=== PATIENT | female | born 1965 | race Caucasian/White ===

== ENCOUNTER → 2022-07-26 | Outpatient (CLI) | payer OTHER ==
[~2022-07-26] MED LIST: Zofran4 MG PO
[2022-07-26 09:28] LABS: BASOPHILS ABSOLUTE AUTO 0.05 K/mm3 (0.00-0.23); BASOPHILS PERCENT AUTO 0 % (0-2); EOSINOPHILS ABSOLUTE AUTO 0.06 K/mm3 (0.00-0.68); EOSINOPHILS PERCENT AUTO 0 % (0-6); Hemoglobin 13.8 g/dL (11.5-16.0); IMMATURE GRAN ABSOLUTE AUTO 0.06 K/mm3 (0.00-0.10); IMMATURE GRAN PERCENT AUTO 0 % (0-1); LYMPHOCYTES ABSOLUTE AUTO 2.58 K/mm3 (0.84-5.20); LYMPHOCYTES PERCENT AUTO 18 % (21-46); MONOCYTES ABSOLUTE AUTO 0.94 K/mm3 (0.16-1.47); MONOCYTES PERCENT AUTO 6 % (4-13); Mean Corpuscular HGB 31.2 pg (26.0-34.0); Mean Corpuscular HGB Conc 34.5 g/dL (31.5-36.5); Mean Corpuscular Volume 90 fL (80-100); Mean Platelet Volume 9.2 fL (9.1-12.4); NEUTROPHILS ABSOLUTE AUTO 11.09 K/mm3 (1.96-9.15); NEUTROPHILS PERCENT AUTO 75 % (41-73); Platelet Count 308 K/mm3 (150-400); RDW Coefficient Variation 12.2 % (11.7-14.2); RDW Standard Deviation 40.1 fL (35.1-46.3); Red Blood Cell Count 4.43 M/mm3 (3.80-5.20); White Blood Cell Count 14.78 K/mm3 (4.00-11.30)
[2022-07-26 09:37] LABS: Bun/Creatinine Ratio 10.6 (12.0-20.0); Calcium, Blood 8.8 mg/dL (8.5-10.1); Creatinine, Blood 0.85 mg/dL (0.40-1.00); Potassium, Blood 3.5 mmol/L (3.5-5.5)
== END | disposition home or self-care (01) ==
LOC: LAB SHORT 09:23
PROVIDERS: Physician Assistant Medical
DX: K11.21 Acute sialoadenitis (principal)
CPT/HCPCS: 80048; 85025

== ENCOUNTER → 2022-07-27 | Outpatient (CLI) | payer OTHER ==
[2022-07-27 08:29] LABS: BASOPHILS ABSOLUTE AUTO 0.03 K/mm3 (0.00-0.23); BASOPHILS PERCENT AUTO 0 % (0-2); EOSINOPHILS ABSOLUTE AUTO 0.02 K/mm3 (0.00-0.68); EOSINOPHILS PERCENT AUTO 0 % (0-6); Hemoglobin 12.1 g/dL (11.5-16.0); IMMATURE GRAN ABSOLUTE AUTO 0.07 K/mm3 (0.00-0.10); IMMATURE GRAN PERCENT AUTO 0 % (0-1); LYMPHOCYTES PERCENT AUTO 17 % (21-46); MONOCYTES ABSOLUTE AUTO 2.08 K/mm3 (0.16-1.47); MONOCYTES PERCENT AUTO 11 % (4-13); Mean Corpuscular HGB 31.1 pg (26.0-34.0); Mean Corpuscular HGB Conc 34.6 g/dL (31.5-36.5); Mean Corpuscular Volume 90 fL (80-100); Mean Platelet Volume 9.2 fL (9.1-12.4); NEUTROPHILS ABSOLUTE AUTO 13.61 K/mm3 (1.96-9.15); NEUTROPHILS PERCENT AUTO 72 % (41-73); Platelet Count 298 K/mm3 (150-400); RDW Coefficient Variation 12.2 % (11.7-14.2); RDW Standard Deviation 39.9 fL (35.1-46.3); Red Blood Cell Count 3.89 M/mm3 (3.80-5.20); White Blood Cell Count 19.01 K/mm3 (4.00-11.30)
== END | disposition home or self-care (01) ==
LOC: LAB SHORT 08:23
PROVIDERS: Physician Assistant
DX: K11.21 Acute sialoadenitis (principal)
CPT/HCPCS: 85025

== ENCOUNTER 2022-08-03 17:09 | Inpatient (IN) | payer SELFPAY ==
[~2022-08-03] VITALS: Ht 160 cm; Wt 106.1 kg
[~2022-08-03 17:09] MED LIST changes: -AMOCLA875 PO; -ATOMOXETINE HCL25 MG PO; -Celexa20 MG PO; -METPRE4DP PO; -Norco 5-325 Ta1 EACH PO; -SEROQUEL200 MG PO
[2022-08-03] MEDS ORDERED: ATOMOXETINE HCL25 MG PO (18:07)
[2022-08-03] MEDS ORDERED: SEROQUEL200 MG PO (18:07)
[2022-08-03] MEDS ORDERED: Celexa20 MG PO (18:08)
[2022-08-04 05:21] LABS: BASOPHILS ABSOLUTE AUTO 0.03 K/mm3 (0.00-0.23); BASOPHILS PERCENT AUTO 0 % (0-2); EOSINOPHILS ABSOLUTE AUTO 0.27 K/mm3 (0.00-0.68); EOSINOPHILS PERCENT AUTO 3 % (0-6); Hematocrit 37.7 % (33.0-51.0); Hemoglobin 12.9 g/dL (11.5-16.0); IMMATURE GRAN ABSOLUTE AUTO 0.03 K/mm3 (0.00-0.10); IMMATURE GRAN PERCENT AUTO 0 % (0-1); LYMPHOCYTES ABSOLUTE AUTO 3.33 K/mm3 (0.84-5.20); LYMPHOCYTES PERCENT AUTO 38 % (21-46); MONOCYTES ABSOLUTE AUTO 0.82 K/mm3 (0.16-1.47); MONOCYTES PERCENT AUTO 9 % (4-13); Mean Corpuscular HGB 30.9 pg (26.0-34.0); Mean Corpuscular HGB Conc 34.2 g/dL (31.5-36.5); Mean Corpuscular Volume 90 fL (80-100); Mean Platelet Volume 8.5 fL (9.1-12.4); NEUTROPHILS ABSOLUTE AUTO 4.25 K/mm3 (1.96-9.15); NEUTROPHILS PERCENT AUTO 49 % (41-73); Platelet Count 339 K/mm3 (150-400); RDW Coefficient Variation 11.9 % (11.7-14.2); RDW Standard Deviation 39.4 fL (35.1-46.3); Red Blood Cell Count 4.17 M/mm3 (3.80-5.20); White Blood Cell Count 8.73 K/mm3 (4.00-11.30)
[2022-08-04 05:38] LABS: Bun/Creatinine Ratio 13.7 (12.0-20.0); Calcium, Blood 8.3 mg/dL (8.5-10.1); Creatinine, Blood 1.02 mg/dL (0.40-1.00); Potassium, Blood 3.8 mmol/L (3.5-5.5)
--- NOTE | 2022-08-04 06:51 | NUR ---
SUMMARY ADMIT FOR ABSVESS. DR WREN CALLED AND WILL BE IN TO ATTEMPT DRAINAGE INROOM THIS AM.PT NPO.VOIDING.PAIN WELL CONTROLLED IV INFUSING .
--- NOTE | 2022-08-04 15:23 | NUR ---
SHIFT SUMMARY: DR. ADEN (ENT) CAME TO THE PATIENTS ROOM AT 1330 TODAY. SHE INJECTED 10ML OF LIDOCAINE INTO THE PATIENTS RIGHT CHEEK OF HER MOUTH, AND THEN ASPIRATED THE INTERNAL CHEEK ABSCESS. DR. ADEN WAS ABLE TO DRAW OUT 5NL OF YELLOW/RED PUSS FROM THE RIGHT CHEEK. SAMPLES WERE SENT TO [facility] FOR FURTHER EVALUATION. DR. ADEN PLACED GAUZE WITH TAPE ON THE RIGHT CHEEK WHERE SHE RASTA BACK THE PUSS THAT IS STILL C/D/I. PATIENT IS TOLERATING PO INTAKE OF MECHANICAL SOFT FOODS. SHE IS VOIDING AND PASSING GAS. PAIN IS MANAGED WITH PO TYLENOL AND NORCO AT THIS TIME. PATIENT IS A&OX4. INDEP. TO THE BATHROOM. CALLS APPROPRIATELY. PATIENT IS SITTING UP IN BED WITH CALL LIGHT IN REACH. THE PLAN IS TO CONTINUE IV ABX AND PAIN MANAGEMENT. DR. ADEN SAID SHE WOULD COME BACK TOMORROW TO RE-EVALUATE HER RIGHT CHEEK, AND MIGHT POSSIBLY DISCHARGE HOME TOMORROW IF APPROPRIATE.
--- NOTE | 2022-08-05 05:50 | NUR ---
Patient slept well overnight, [place] given x1. Voiding and independent in room. Right cheek dressing clean, dry, and intact. No questions or concerns at this time.
--- NOTE | 2022-08-05 16:54 | NUR ---
SHIFT SUMMARY NO ACUTE CHANGES THIS SHEFT. ENT MD CLEARED PATIENT TO DISCHARGE, HOWEVER PATIENT FELT MORE COMFORTABLE GETTING ANOTHER DAY OF IV ABX TO ENSURE ABCESS/INFECTION WILL HEAL. MD AGREEABLE. IND IN ROOM T/O SHIFT. EATING, DRINKING, & VOIDING W/O DIFFICULTY. DENIED PAIN T/O SHIFT. CALL LIGHT INR EACH, WILL REPORT TO ONCOMING RN AT 1900.
--- NOTE | 2022-08-06 06:22 | NUR ---
Patient stated pain has improved and was able to eat comfortably. IV ABX given as scheduled. Incision clean dry intact, open to air. Swelling has decresed in cheek. No questions or concerns at this time.
[2022-08-06] MEDS ORDERED: AMOCLA875 PO (10:19)
[2022-08-06] MEDS ORDERED: METPRE4DP PO (10:19)
[2022-08-06] MEDS ORDERED: Norco 5-325 Ta1 EACH PO (10:20)
--- NOTE | 2022-08-06 10:50 | NUR ---
DISCHARGE VSS ON ROOM AIR. PATIENT INDEPENDENT IN ROOM. EATING, DRINKING, & VOIDING WELL. DENIES PAIN AT THIS TIME. RIGHT CHEEK APPEARS SLIGHTLY SWOLLEN, NO REDNESS OR DRAINAGE NOTED. DISCUSSED DISCHARGE INSTRUCTIONS. PATIENT DECLINED W/C, AMBULATED OUT W/ FAMILY MEMBER.
== END 2022-08-06 10:50 | disposition home or self-care (01) | DRG 138 ==
LOC: ER 17:09 → SURS 17:10
PROVIDERS: Family Medicine; ADMIT Internal Medicine
PROC: 0W930ZZ Drainage of Oral Cavity and Throat, Open Approach (ICD-10-PCS; principal; 2022-08-04)
DX: K12.2 Cellulitis and abscess of mouth (principal); M27.2 Inflammatory conditions of jaws; F32.9 Major depressive disorder, single episode, unspecified; F41.9 Anxiety disorder, unspecified; F90.9 Attention-deficit hyperactivity disorder, unspecified type; Z79.899 Other long term (current) drug therapy; Z98.890 Other specified postprocedural states
CPT/HCPCS: 36415; 80048; 85025; 87070; 87075; 87205; 96376; 99284; A9270; G0378; J0295; J1100; J2543; J7030

== ENCOUNTER → 2022-08-03 | Outpatient (CLI) | payer SELFPAY ==
[~2022-08-03] MED LIST changes: +AMOCLA875 PO; +ATOMOXETINE HCL25 MG PO; +Celexa20 MG PO; +METPRE4DP PO; +Norco 5-325 Ta1 EACH PO; +SEROQUEL200 MG PO
[2022-08-03 09:30] LABS: BASOPHILS ABSOLUTE AUTO 0.04 K/mm3 (0.00-0.23); BASOPHILS PERCENT AUTO 0 % (0-2); EOSINOPHILS ABSOLUTE AUTO 0.33 K/mm3 (0.00-0.68); EOSINOPHILS PERCENT AUTO 3 % (0-6); Hematocrit 39.5 % (33.0-51.0); Hemoglobin 13.6 g/dL (11.5-16.0); IMMATURE GRAN ABSOLUTE AUTO 0.05 K/mm3 (0.00-0.10); IMMATURE GRAN PERCENT AUTO 1 % (0-1); LYMPHOCYTES PERCENT AUTO 32 % (21-46); MONOCYTES ABSOLUTE AUTO 0.63 K/mm3 (0.16-1.47); MONOCYTES PERCENT AUTO 6 % (4-13); Mean Corpuscular HGB 31.4 pg (26.0-34.0); Mean Corpuscular HGB Conc 34.4 g/dL (31.5-36.5); Mean Corpuscular Volume 91 fL (80-100); Mean Platelet Volume 8.5 fL (9.1-12.4); NEUTROPHILS ABSOLUTE AUTO 6.26 K/mm3 (1.96-9.15); NEUTROPHILS PERCENT AUTO 58 % (41-73); Platelet Count 347 K/mm3 (150-400); RDW Coefficient Variation 11.9 % (11.7-14.2); RDW Standard Deviation 39.8 fL (35.1-46.3); Red Blood Cell Count 4.33 M/mm3 (3.80-5.20); White Blood Cell Count 10.71 K/mm3 (4.00-11.30)
[2022-08-03 09:47] LABS: Albumin, Blood 3.4 g/dL (3.4-5.0); Albumin/Globulin Ratio 0.7 (0.8-1.8); Bilirubin, Total 0.1 mg/dL (0.1-1.0); Bun/Creatinine Ratio 17.2 (12.0-20.0); Calcium, Blood 9.2 mg/dL (8.5-10.1); Creatinine, Blood 0.99 mg/dL (0.40-1.00); Globulin, Blood 4.7 g/dL (2.2-4.0); Potassium, Blood 4.2 mmol/L (3.5-5.5); Total Protein, Blood 8.1 g/dL (6.4-8.2)
== END | disposition home or self-care (01) ==
LOC: LAB SHORT 09:26
PROVIDERS: Emergency Medicine
DX: R22.0 Localized swelling, mass and lump, head (principal)
CPT/HCPCS: 80053; 85025

== ENCOUNTER 2023-03-18 10:32 | Inpatient (IN) | payer SELFPAY ==
[~2023-03-18] VITALS: Ht 160 cm; Wt 110.0 kg
[~2023-03-18 10:32] MED LIST changes: +AMOCLA875 PO; +ATOMOXETINE HCL25 MG PO; +Celexa20 MG PO; +METPRE4DP PO; +Norco 5-325 Ta1 EACH PO; +SEROQUEL200 MG PO
[2023-03-18 11:57] LABS: BASOPHILS ABSOLUTE AUTO 0.06 K/mm3 (0.00-0.23); BASOPHILS PERCENT AUTO 0 % (0-2); EOSINOPHILS ABSOLUTE AUTO 0.25 K/mm3 (0.00-0.68); EOSINOPHILS PERCENT AUTO 2 % (0-6); Hematocrit 37.8 % (33.0-51.0); IMMATURE GRAN ABSOLUTE AUTO 0.03 K/mm3 (0.00-0.10); IMMATURE GRAN PERCENT AUTO 0 % (0-1); LYMPHOCYTES ABSOLUTE AUTO 3.21 K/mm3 (0.84-5.20); LYMPHOCYTES PERCENT AUTO 24 % (21-46); MONOCYTES PERCENT AUTO 7 % (4-13); Mean Corpuscular HGB 31.5 pg (26.0-34.0); Mean Corpuscular HGB Conc 34.4 g/dL (31.5-36.5); Mean Corpuscular Volume 92 fL (80-100); Mean Platelet Volume 8.7 fL (9.1-12.4); NEUTROPHILS ABSOLUTE AUTO 8.98 K/mm3 (1.96-9.15); NEUTROPHILS PERCENT AUTO 67 % (41-73); Platelet Count 342 K/mm3 (150-400); RDW Coefficient Variation 12.4 % (11.7-14.2); RDW Standard Deviation 41.1 fL (35.1-46.3); Red Blood Cell Count 4.13 M/mm3 (3.80-5.20); White Blood Cell Count 13.43 K/mm3 (4.00-11.30)
[2023-03-18 12:51] LABS: Albumin, Blood 3.7 g/dL (3.4-5.0); Albumin/Globulin Ratio 0.8 (0.8-1.8); Bilirubin, Total 0.2 mg/dL (0.1-1.0); Bun/Creatinine Ratio 12.4 (12.0-20.0); Calcium, Blood 8.8 mg/dL (8.5-10.1); Creatinine, Blood 0.97 mg/dL (0.40-1.00); Globulin, Blood 4.7 g/dL (2.2-4.0); Potassium, Blood 3.8 mmol/L (3.5-5.5); Total Protein, Blood 8.4 g/dL (6.4-8.2)
[2023-03-18 18:07] VITALS: BP 123/72
--- NOTE | 2023-03-19 03:55 | NUR ---
SHIFT SUMMARY NOC PT A/O X 4. PLEASANT AND COOPERATIVE WITH CARE. RECEIVING UNASYN IV FOR R SIDE DENTAL ABCESS. PT MAY DISCHARGE TODAY TO TRANSFER DOWN TO [place] FOR DENTAL CONSULT, BUT PT VEHICLE IS NOT RELIABLE, SO OTHER TRAVEL OPTIONS ARE BEING REVIEWED. ACCORDING TO PT SWELLING ON R SIDE HAS SIGNIFICANTLY DECREASED SINCE ADMIT TO FLOOR YESTERDAY. NO ACUTE CHANGES TO REPORT. PT IS CURRENTLY RESTING WITH BED IN LOWEST POSITION, AND CALL LIGHT WITHIN REACH.
[2023-03-19 04:50] LABS: BASOPHILS ABSOLUTE AUTO 0.05 K/mm3 (0.00-0.23); BASOPHILS PERCENT AUTO 1 % (0-2); EOSINOPHILS ABSOLUTE AUTO 0.37 K/mm3 (0.00-0.68); EOSINOPHILS PERCENT AUTO 4 % (0-6); Hematocrit 35.9 % (33.0-51.0); Hemoglobin 12.3 g/dL (11.5-16.0); IMMATURE GRAN ABSOLUTE AUTO 0.02 K/mm3 (0.00-0.10); IMMATURE GRAN PERCENT AUTO 0 % (0-1); LYMPHOCYTES ABSOLUTE AUTO 3.03 K/mm3 (0.84-5.20); LYMPHOCYTES PERCENT AUTO 29 % (21-46); MONOCYTES ABSOLUTE AUTO 0.92 K/mm3 (0.16-1.47); MONOCYTES PERCENT AUTO 9 % (4-13); Mean Corpuscular HGB 31.3 pg (26.0-34.0); Mean Corpuscular HGB Conc 34.3 g/dL (31.5-36.5); Mean Corpuscular Volume 91 fL (80-100); Mean Platelet Volume 9.1 fL (9.1-12.4); NEUTROPHILS ABSOLUTE AUTO 6.18 K/mm3 (1.96-9.15); NEUTROPHILS PERCENT AUTO 58 % (41-73); Platelet Count 320 K/mm3 (150-400); RDW Coefficient Variation 12.5 % (11.7-14.2); RDW Standard Deviation 41.4 fL (35.1-46.3); Red Blood Cell Count 3.93 M/mm3 (3.80-5.20); White Blood Cell Count 10.57 K/mm3 (4.00-11.30)
[2023-03-19 05:47] VITALS: BP 111/66
[2023-03-19 07:41] VITALS: BP 102/59
--- NOTE | 2023-03-19 15:32 | NUR ---
3 BLUE AND WHITE PILLS IN PT LOCK BOX IN SMALL ZIPLOC BAG. PER PT PILLS ARE FOR ADHD. PHARMACY UNABLE TO VERIFY DUE TO NO BOTTLE WITH EXPIRATION DATE. PT STATES HER FATHER WILL BRING BOTTLE IN PRIOR TO AM MEDICATIONS.
[2023-03-19 15:43] VITALS: BP 111/56
--- NOTE | 2023-03-19 18:41 | NUR ---
SHIFT SUMMARY: PT A&O X4. PT PLEASANT AND COOPERATIVE WITH CARE. PT STATES HER PAIN/SWELLING HAS IMPROVED SINCE YESTERDAY. PT C/O 9/10 PAIN ONCE THIS SHIFT. PAIN MEDS GIVEN PER EMAR. DR. ACEVEDO ARRIVED THIS EVENING TO CONSULT WITH PT. 10MG IV DECADRON ADDED VERBAL ORDER. PT TOLERATING IV ABX WELL. ADHD MEDICATIONS IN DRAWER. FATHER OF PT TO BRING IN MEDICATION BOTTLE EITHER TONIGHT OR TOMORROW TO BE GIVEN TO PHARMACY. INDEPENDENT IN ROOM. IV IN LAC PAINFUL. EJ CHIANG PLACED NEW IV IN L.HAND CURRENTLY INFUSING AMPICILLIN. PT SWITCHED TO [facility] SOFT DIET DUE TO PAIN WHEN EATING. PT DID NOT TRANSFER TO [place] IV ABX APPEAR TO BE HELPING W/SWELLING. CALL LIGHT IN REACH. BED IN LOWEST POSITION. WILL CONTINUE TO MONITOR.
[2023-03-19 19:20] VITALS: BP 115/63
--- NOTE | 2023-03-20 04:26 | NUR ---
SUMMARY- PT A/O X4, INDEPENDANT IN ROOM. TOLERATING FOOD AND FLUID. DENIES ANY PAIN, DECLINED NORCO WHEN OFFERED. CONT WITH SWELLING TO R FACIAL, PT STATES SOME IMPROVEMENT. SLEPT MOST OF SHIFT FROM 2300 ON.
[2023-03-20 04:29] VITALS: BP 98/61
[2023-03-20 05:44] LABS: BASOPHILS ABSOLUTE AUTO 0.01 K/mm3 (0.00-0.23); BASOPHILS PERCENT AUTO 0 % (0-2); EOSINOPHILS PERCENT AUTO 0 % (0-6); Hematocrit 39.8 % (33.0-51.0); Hemoglobin 13.4 g/dL (11.5-16.0); IMMATURE GRAN ABSOLUTE AUTO 0.05 K/mm3 (0.00-0.10); IMMATURE GRAN PERCENT AUTO 0 % (0-1); LYMPHOCYTES ABSOLUTE AUTO 1.68 K/mm3 (0.84-5.20); LYMPHOCYTES PERCENT AUTO 15 % (21-46); MONOCYTES ABSOLUTE AUTO 0.09 K/mm3 (0.16-1.47); MONOCYTES PERCENT AUTO 1 % (4-13); Mean Corpuscular HGB 30.9 pg (26.0-34.0); Mean Corpuscular HGB Conc 33.7 g/dL (31.5-36.5); Mean Corpuscular Volume 92 fL (80-100); NEUTROPHILS ABSOLUTE AUTO 9.56 K/mm3 (1.96-9.15); NEUTROPHILS PERCENT AUTO 84 % (41-73); Platelet Count 354 K/mm3 (150-400); RDW Coefficient Variation 12.1 % (11.7-14.2); RDW Standard Deviation 40.8 fL (35.1-46.3); Red Blood Cell Count 4.34 M/mm3 (3.80-5.20); White Blood Cell Count 11.39 K/mm3 (4.00-11.30)
[2023-03-20 06:08] LABS: Bun/Creatinine Ratio 17.4 (12.0-20.0); Calcium, Blood 8.8 mg/dL (8.5-10.1); Creatinine, Blood 0.86 mg/dL (0.40-1.00)
[2023-03-20 08:14] VITALS: BP 113/71
[2023-03-20 16:08] VITALS: BP 117/50
--- NOTE | 2023-03-20 18:02 | NUR ---
SHIFT SUMMARY: PT A&O X4. PT PLEASANT AND COOPERATIVE WITH CARE. PT STATES SHE IS FEELING MUCH BETTER TODAY REGARDING SWELLING AND PAIN. WILL CONTINUE WITH LAST 2 DOSES OF IV STERIODS AND LIKELY GO HOME TOMORROW W/OUTPT FOLLOW-UP. DR. ACEVEDO ARRIVED TO TALKED TO PT THIS AFTERNOON. PILLS IN DRAWER LABELED BY PHARMACY THIS AM. CALL LIGHT IN REACH. BED IN LOWEST POSITION. WILL CONTINUE TO MONITOR.
[2023-03-20 19:23] VITALS: BP 123/74
--- NOTE | 2023-03-21 05:03 | NUR ---
END OF SHIFT SUMMARY PT A&O x4, VSS, AFEBRILE. PT CALM AND COOPERATIVE WITH CARE PROVIDED. PT DENIED PAIN/DISCOMFORT. UNEVENTFUL NIGHT, PT SLEPT FOR MOST OF THE SHIFT. IV ANTIBIOTICS ADMINISTERED. PT COMPLIANT WITH MEDICATION REGIMEN, EXCEPT FOR THE BOWEL CARE MEDS. PT ON RA, RESP EVEN AND UNLABORED. PT ANTICIPATING GOING HOME TODAY. CALL LIGHT WITHIN REACH, WCTM.
[2023-03-21 05:05] VITALS: BP 110/70
[2023-03-21 06:17] LABS: BASOPHILS ABSOLUTE AUTO 0.03 K/mm3 (0.00-0.23); BASOPHILS PERCENT AUTO 0 % (0-2); EOSINOPHILS PERCENT AUTO 0 % (0-6); Hematocrit 38.9 % (33.0-51.0); Hemoglobin 13.3 g/dL (11.5-16.0); IMMATURE GRAN ABSOLUTE AUTO 0.14 K/mm3 (0.00-0.10); IMMATURE GRAN PERCENT AUTO 1 % (0-1); LYMPHOCYTES ABSOLUTE AUTO 2.29 K/mm3 (0.84-5.20); LYMPHOCYTES PERCENT AUTO 11 % (21-46); MONOCYTES ABSOLUTE AUTO 0.34 K/mm3 (0.16-1.47); MONOCYTES PERCENT AUTO 2 % (4-13); Mean Corpuscular HGB 31.1 pg (26.0-34.0); Mean Corpuscular HGB Conc 34.2 g/dL (31.5-36.5); Mean Corpuscular Volume 91 fL (80-100); Mean Platelet Volume 9.1 fL (9.1-12.4); NEUTROPHILS ABSOLUTE AUTO 17.78 K/mm3 (1.96-9.15); NEUTROPHILS PERCENT AUTO 86 % (41-73); Platelet Count 385 K/mm3 (150-400); RDW Coefficient Variation 12.5 % (11.7-14.2); Red Blood Cell Count 4.27 M/mm3 (3.80-5.20); White Blood Cell Count 20.58 K/mm3 (4.00-11.30)
[2023-03-21 06:56] LABS: Albumin, Blood 3.1 g/dL (3.4-5.0); Albumin/Globulin Ratio 0.6 (0.8-1.8); Bilirubin, Total 0.1 mg/dL (0.1-1.0); Bun/Creatinine Ratio 20.1 (12.0-20.0); Calcium, Blood 9.1 mg/dL (8.5-10.1); Creatinine, Blood 0.75 mg/dL (0.40-1.00); Globulin, Blood 4.9 g/dL (2.2-4.0); Potassium, Blood 3.8 mmol/L (3.5-5.5)
[2023-03-21 07:09] VITALS: BP 111/69
[2023-03-21] MEDS ORDERED: AMOCLA875 PO (12:33)
[2023-03-21] MEDS ORDERED: PRED20 PO (12:34)
--- NOTE | 2023-03-21 13:52 | NUR ---
LATE ENTRY/DC HOME 1245: WRITTEN & VERBAL DC IMSTRUCTIONS GIVEN TO PT, PT VERBALIZED GOOD UNDERSTANDING. ALL CONCERNS AND QUESTIONS ADDRESSED. NEW MED SCRIPTS FAXED TO [facility] PER PT REQUEST. PIV DC'D WITH CATH TIP INTACT, NO REDNESS OR SWELLING NOTED. PT AMBULATED SELF OUT TO DAD'S WAITING PV WITH ALL PERSONAL BELONGINGS.
== END 2023-03-21 12:54 | disposition home or self-care (01) | DRG 158 ==
LOC: ER 10:32 → MEDS 10:33 → ENPENDDIS 03-21 11:37 → MEDS 03-21 12:54
PROVIDERS: Hospitalist; Student in an Organized Health Care Education/Training Program; ADMIT Hospitalist
DX: K04.7 Periapical abscess without sinus (principal); F33.0 Major depressive disorder, recurrent, mild; L03.211 Cellulitis of face; Z68.41 Body mass index [BMI] 40.0-44.9, adult; D72.829 Elevated white blood cell count, unspecified; E66.9 Obesity, unspecified; F41.9 Anxiety disorder, unspecified; F90.9 Attention-deficit hyperactivity disorder, unspecified type; Z79.899 Other long term (current) drug therapy; Z98.891 History of uterine scar from previous surgery
CPT/HCPCS: 36415; 70487; 80048; 80053; 85025; 86140; 96365-59; 96366; 96375-59; 96376; 99285-25; A9270; G0378; J0295; J1100; J1885; J7050; Q9967

== ENCOUNTER 2023-04-15 09:34 | Inpatient (IN) | payer SELFPAY ==
[~2023-04-15] VITALS: Ht 157.5 cm; Wt 113.8 kg
[~2023-04-15 09:34] MED LIST changes: +PRED20 PO
[2023-04-15 10:25] LABS: BASOPHILS ABSOLUTE AUTO 0.04 K/mm3 (0.00-0.23); BASOPHILS PERCENT AUTO 1 % (0-2); EOSINOPHILS ABSOLUTE AUTO 0.34 K/mm3 (0.00-0.68); EOSINOPHILS PERCENT AUTO 5 % (0-6); Hematocrit 36.9 % (33.0-51.0); Hemoglobin 12.4 g/dL (11.5-16.0); IMMATURE GRAN ABSOLUTE AUTO 0.01 K/mm3 (0.00-0.10); IMMATURE GRAN PERCENT AUTO 0 % (0-1); LYMPHOCYTES PERCENT AUTO 38 % (21-46); MONOCYTES ABSOLUTE AUTO 0.61 K/mm3 (0.16-1.47); MONOCYTES PERCENT AUTO 9 % (4-13); Mean Corpuscular HGB 31.5 pg (26.0-34.0); Mean Corpuscular HGB Conc 33.6 g/dL (31.5-36.5); Mean Corpuscular Volume 94 fL (80-100); Mean Platelet Volume 9.3 fL (9.1-12.4); NEUTROPHILS PERCENT AUTO 48 % (41-73); Platelet Count 268 K/mm3 (150-400); RDW Standard Deviation 44.7 fL (35.1-46.3); Red Blood Cell Count 3.94 M/mm3 (3.80-5.20)
[2023-04-15 10:41] LABS: Albumin, Blood 3.4 g/dL (3.4-5.0); Albumin/Globulin Ratio 0.9 (0.8-1.8); Bilirubin, Total 0.3 mg/dL (0.1-1.0); Bun/Creatinine Ratio 16.8 (12.0-20.0); Calcium, Blood 8.2 mg/dL (8.5-10.1); Creatinine, Blood 0.95 mg/dL (0.40-1.00); Globulin, Blood 3.9 g/dL (2.2-4.0); Potassium, Blood 3.7 mmol/L (3.5-5.5); Total Protein, Blood 7.3 g/dL (6.4-8.2)
[2023-04-15 14:59] VITALS: BP 129/78
--- NOTE | 2023-04-15 16:38 | NUR ---
ADMISSION MS SLATER WAS ADMITTED TO MEDICAL UNIT FROM [facility] AT 1455HRS. SHE IS UP INDEPENDENTLY IN THE ROOM WITH A STEADY GAIT. SHE IS HERE FOR RIGHT FACIAL ABSCESS AND HAS RIGHT FACIAL REDNESS AND SWELLING, PHOTOGRAPH IN CHART. SHE SAID PAIN HAS DECREASED SINCE IV ABX WERE GIVEN IN THE [facility]. SHE LIVES IN AN APARTMENT, HER FATHER LIVES WITH HER. SHE SAID THAT AFTER HER LAST DISCHARGE SHE SOMETIMES WOULD FORGET TO TAKE HER MORNING MEDICATIONS AND WOULD MISS SOME DOSES OF HER ANTIBIOTICS. OTHER THAN THE FACIAL ABSCESS SHE HAS DENIED ANY OTHER PROBLEMS OR CONCERNS. SHE IS NPO ON IVF. BED LOW, CALL LIGHT IN REACH.
[2023-04-15 19:01] VITALS: BP 123/64
--- NOTE | 2023-04-16 02:25 | NUR ---
SHIFT SUMMERY. PT RESTING IN BED, PT WIDE AWAKE MOST OF THE NIGHT. PT STATED SHE WORKS THE [employer] SO IS USUALY UP ALLL NIGHT, PT TAKING ON PHONE TO FRIEND. CALL LIGHT IN REACH .
[2023-04-16 03:06] VITALS: BP 105/62
[2023-04-16 04:50] LABS: BASOPHILS ABSOLUTE AUTO 0.02 K/mm3 (0.00-0.23); BASOPHILS PERCENT AUTO 0 % (0-2); EOSINOPHILS PERCENT AUTO 0 % (0-6); Hematocrit 41.7 % (33.0-51.0); Hemoglobin 14.1 g/dL (11.5-16.0); IMMATURE GRAN ABSOLUTE AUTO 0.03 K/mm3 (0.00-0.10); IMMATURE GRAN PERCENT AUTO 0 % (0-1); LYMPHOCYTES ABSOLUTE AUTO 1.58 K/mm3 (0.84-5.20); LYMPHOCYTES PERCENT AUTO 14 % (21-46); MONOCYTES ABSOLUTE AUTO 0.06 K/mm3 (0.16-1.47); MONOCYTES PERCENT AUTO 1 % (4-13); Mean Corpuscular HGB 31.1 pg (26.0-34.0); Mean Corpuscular HGB Conc 33.8 g/dL (31.5-36.5); Mean Corpuscular Volume 92 fL (80-100); Mean Platelet Volume 9.3 fL (9.1-12.4); NEUTROPHILS ABSOLUTE AUTO 9.32 K/mm3 (1.96-9.15); NEUTROPHILS PERCENT AUTO 85 % (41-73); Platelet Count 356 K/mm3 (150-400); RDW Standard Deviation 43.7 fL (35.1-46.3); Red Blood Cell Count 4.53 M/mm3 (3.80-5.20); White Blood Cell Count 11.01 K/mm3 (4.00-11.30)
[2023-04-16 05:15] LABS: Albumin, Blood 3.5 g/dL (3.4-5.0); Albumin/Globulin Ratio 0.8 (0.8-1.8); Bilirubin, Total 0.5 mg/dL (0.1-1.0); Bun/Creatinine Ratio 19.3 (12.0-20.0); Creatinine, Blood 0.78 mg/dL (0.40-1.00); Globulin, Blood 4.6 g/dL (2.2-4.0); Potassium, Blood 4.1 mmol/L (3.5-5.5); Total Protein, Blood 8.1 g/dL (6.4-8.2)
[2023-04-16 07:45] VITALS: BP 117/68
--- NOTE | 2023-04-16 09:00 | NUR ---
pt laying in bed awake, a/ox4, pleasant and coopertive with care, follows commands well, reports pain at swelling site on right side of her face, otherwise ok, lungs are clear t/o, resp even and unlabored, no cough noted, hrr, no edema noted, ppp+2, cap refill<3sec, vs stable, afebrile, iv site is power glide to roshni, site is clear and patent, btx4, abd flat soft nontender, voids without diff, skin c/w/d, except right side of face is swollen and warm, majarad, up ad dominic in room, danielito, call light in reach.
[2023-04-16 16:59] VITALS: BP 114/63
--- NOTE | 2023-04-16 18:05 | NUR ---
pt has kept a heating pad on and off her right side face most of the day, she reports it is leaking a bit, no further changes this shift. call light in reach.
[2023-04-16 19:32] VITALS: BP 126/67
[2023-04-17 03:20] VITALS: BP 133/71
--- NOTE | 2023-04-17 04:23 | NUR ---
SHIFT SUMMARY *JOYCE* IS ALERT AND FULLY ORIENTED AT START OF SHIFT. SHE IS COOPERATIVE WITH CARE. PT HAD NO OUTSTANDING COMPLAINTS, AND NO ACUTE EVENTS THIS SHIFT. SHE IS INDEPENDENT IN THE ROOM, CURRENTLY RESTING IN BED WITH THE CALL LIGHT IN REACH.
[2023-04-17 05:10] LABS: BASOPHILS ABSOLUTE AUTO 0.02 K/mm3 (0.00-0.23); BASOPHILS PERCENT AUTO 0 % (0-2); EOSINOPHILS PERCENT AUTO 0 % (0-6); Hematocrit 39.7 % (33.0-51.0); Hemoglobin 13.3 g/dL (11.5-16.0); IMMATURE GRAN ABSOLUTE AUTO 0.11 K/mm3 (0.00-0.10); IMMATURE GRAN PERCENT AUTO 1 % (0-1); LYMPHOCYTES ABSOLUTE AUTO 2.21 K/mm3 (0.84-5.20); LYMPHOCYTES PERCENT AUTO 14 % (21-46); MONOCYTES ABSOLUTE AUTO 0.31 K/mm3 (0.16-1.47); MONOCYTES PERCENT AUTO 2 % (4-13); Mean Corpuscular HGB 31.4 pg (26.0-34.0); Mean Corpuscular HGB Conc 33.5 g/dL (31.5-36.5); Mean Corpuscular Volume 94 fL (80-100); Mean Platelet Volume 9.6 fL (9.1-12.4); NEUTROPHILS ABSOLUTE AUTO 13.33 K/mm3 (1.96-9.15); NEUTROPHILS PERCENT AUTO 84 % (41-73); Platelet Count 374 K/mm3 (150-400); RDW Coefficient Variation 13.3 % (11.7-14.2); RDW Standard Deviation 45.7 fL (35.1-46.3); Red Blood Cell Count 4.24 M/mm3 (3.80-5.20); White Blood Cell Count 15.98 K/mm3 (4.00-11.30)
[2023-04-17 05:42] LABS: Bun/Creatinine Ratio 22.9 (12.0-20.0); Calcium, Blood 8.8 mg/dL (8.5-10.1); Creatinine, Blood 0.79 mg/dL (0.40-1.00); Potassium, Blood 4.1 mmol/L (3.5-5.5)
[2023-04-17 08:31] VITALS: BP 106/67
[2023-04-17] MEDS ORDERED: Prednisone10 MG PO (13:19)
--- NOTE | 2023-04-17 14:05 | NUR ---
DISCHARGE SUMMARY: PT DISCHARGED HOME. PT GIVEN WRITTEN SCRIPTS FOR PREDNISONE AND AUGMENTIN AT HER REQUEST. PT EDUCATED ON DISCHARGE INSTRUCTIONS AND MEDICATIONS. PT VU. ASSISTED WITH PACKING PT BELONGINGS. PT DECLINED WHEELCHAIR TRANSPORT AND AMBULATED TO POV. PT STATED HER DAD WAS PICKING HER UP.
== END 2023-04-17 13:40 | disposition home or self-care (01) | DRG 158 ==
LOC: ER 09:34 → MEDS 13:32
PROVIDERS: Student in an Organized Health Care Education/Training Program; ADMIT Hospitalist
DX: K04.7 Periapical abscess without sinus (principal); F33.0 Major depressive disorder, recurrent, mild; L02.01 Cutaneous abscess of face; M60.9 Myositis, unspecified; F41.9 Anxiety disorder, unspecified; E03.9 Hypothyroidism, unspecified; F98.8 Other specified behavioral and emotional disorders with onset usually occurring in childhood and adolescence
CPT/HCPCS: 36415; 70487; 80048; 80053; 82947; 85025; 92610; 94762; 96365; 99284-25; A9270; J0295; J1650; J2543; J2930; J7030; J7512; Q9967